=== PATIENT | male | born 1965 | race Caucasian/White ===

== ENCOUNTER 2025-09-27 12:53 | Outpatient (AMB) | payer BC, SELFPAY ==
--- NOTE | 2025-09-27 13:08 | MHC.OFFVIS ---
Vital Signs 09/27/25 13:13 Height 6 ft 2 in Weight 220 lb BMI 28.2 Intake Visit Reasons: Right knee pain and giving way Intake Note: Aldo is a 59 year old male who presents with complaints of progressively worsening right knee pain and giving way. The patient did undergo right knee arthroscopic surgery several years ago. He got fairly good relief from that procedure initially. The patient states that he re-injured his knee approximately 1 year ago. He twisted his knee and had acute onset of pain. The patient has noticed increased pain while trying to do the rowing machine at the gym. Most of the pain is along the medial aspect of his knee. He states that his right knee will give out several times per day. Has tried Tylenol, anti-inflammatory medicines and physical therapy exercises which gave him minimal relief. He has had cortisone injections in the past. The most recent injection gave him no relief. 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 Right hand Physical Exam Vital Signs: BMI result Body Mass Index 28.2 Const Other: Well-nourished well-developed very friendly male awake alert and oriented x3 in no acute distress Extrem Other: Bilateral lower extremity examination shows good capillary refill, no skin lesions noted, normal sensation light touch Right knee examination shows a minimal effusion, mild crepitus with range of motion, tenderness along his medial joint line, positive Ta's test, no instability Results Reviewed Results Reviewed: X-rays of the patient's right knee show moderate joint space narrowing, no acute bony abnormalities Assessment & Plan Assessment & Plan (1) Tear of medial meniscus of right knee: Code(s): S83.241A - Other tear of medial meniscus, current injury, right knee, initial encounter Category: Medical Plan Mr. Costa presents with recurrent right knee pain and mechanical symptoms due to early degenerative joint disease as well as recurrent medial meniscus tearing. I had a lengthy discussion with the patient regarding the treatment options. At this point he has failed continued non operative treatments. The risks and benefits of right knee arthroscopic surgery were discussed at length with the patient. The patient wishes to proceed with surgery. Surgery will involve right knee arthroscopic partial medial meniscectomy. The patient does understand that he may not get 100% relief of his symptoms depending on the severity of his degenerative changes. The patient will be scheduled for our next available date. He will follow up as instructed. Feel free to call me at any time should questions regarding his orthopedic management arise. I spent 20 minutes in reviewing the patient's records and imaging studies, seeing the patient and documenting in the medical record. Orders: Orders XR knee RT 3V 09/27/25 M25.561 - Pain in right knee Coding Level of Care Code Est Pt Level 3 (57250) Add On Problem Visit Only Diagnoses Tear of medial meniscus of right knee S83.241A
[2025-09-27 13:13] VITALS: BMI 28.2
--- OUTSIDE RECORDS SUMMARY | 2025-09-27 19:50 | XMS_ITS | Clinical Summary ---
Author Organization [facility] Prior to 03/18/25 Address [address] [place] [address] Care Team Providers Care Head Concierge Name Role Phone Thomas Dela Cruz MD Primary Care Provider [phone] Allergies No known active allergies Medications Medication Sig Dispensed Refills Start Date End Date Status Pseudoephedrine HCl (SUDAFED 12 HOUR PO) Take by mouth. 0 Active atorvastatin (LIPITOR) tablet 20 mg 0 02/21/2019 Active lisinopril (PRINIVIL,ZESTRIL) tablet 5 mg 0 02/21/2019 Active oxyCODONE (ROXICODONE) 5 MG immediate release tablet Take 1 tablet (5 mg total) by mouth every 6 (six) hours as needed for pain. Do not start until after surgery 25 tablet 0 03/18/2022 Active PEG 4799-GKg-QjVbu-NaCl-N aSulf (PEG-3350/Electrolyte s) 236 g SOLR 0 06/03/2022 Active aspirin 81 MG EC tablet Take 1 tablet (81 mg total) by mouth 2 (two) times a day. 42 tablet 0 06/10/2022 Active cephalexin (Keflex) 500 MG capsule Take 1 capsule (500 mg total) by mouth 4 (four) times a day. Start after surgery 4 capsule 0 06/10/2022 Active gabapentin (Neurontin) 300 MG capsule Take 1 capsule (300 mg total) by mouth daily. Start first dose the evening prior to surgery 3 capsule 0 06/10/2022 Active Active Problems Problem Noted Date Diagnosed Date Traumatic rupture of left quadriceps tendon 11/2021 Trigger finger, left middle finger 02/12/2022 Trigger finger, right middle finger 02/12/2022 Acute medial meniscus tear, left, sequela 2020 Left knee pain 02/22/2019 Patellofemoral arthritis of left knee 02/22/2019 Social History Tobacco Use Types Packs/Day Years Used Date Smoking Tobacco: Unknown Smokeless Tobacco: Never Sex and Gender Information Value Date Recorded Sex Assigned at Male 03/19/2022 12:24 PM EDT Gender Identity Male 03/19/2022 12:24 PM EDT Sexual Orientation Not on file Job Start Date Occupation Industry Not on file Not on file Not on file Last Filed Vital Signs Vital Sign Reading Time Taken Comments Blood Pressure - - Pulse - - Temperature - - Respiratory Rate - - Oxygen Saturation - - Inhaled Oxygen Concentration - - Weight 103.4 kg (228 lb) 11/11/2022 9:32 AM EST Height 188 cm (6' 2 ) 11/11/2022 9:32 AM EST Body Mass Index 29.27 11/11/2022 9:32 AM EST Plan of Treatment Health Maintenance Due Date Last Done Comments Hepatitis C Screening 1965 COVID-19 Vaccine (#1) 04/24/1964 Depression Screening 1975 BMI Counseling 1981 Preventative Health Evaluation 1981 DTap / Tdap / Td (1 - Tdap) 1982 Colon Cancer Screening (Colonoscopy) 2008 Shingrix-Zoster Vaccine (1 of 2) 2013 Influenza Vaccine (#1) 2025 RSV Adult > 60+ Yrs or Pregn ant (1 - 1-dose 75+ series) 2038 Hepatitis B Vaccines Aged Out No long er eligible based on patient's age to complete this topic Pneumococcal Vaccine Aged Out No long er eligible based on patient's age to complete this topic RSV Ped < 20 months Aged Out No longe r eligible based on patient's age to complete this topic Care Teams Head Concierge Relationship Specialty Start Date End Date Thomas Dela Cruz MD [address] [address] PCP - General Internal Medicine 06/23/17
--- OUTSIDE RECORDS SUMMARY | 2025-09-27 19:50 | XMS_ITS ---
Author Name [facility] Organization Unknown History of Medication Use Medication Directions Dispensed Refills Start Date End Date Stat aspirin 81 mg tablet,delayed release TAKE 1 TABLET BY MOUTH TWICE DAILY active atorvastatin 20 mg tablet TAKE 1 TABLET BY MOUTH DAILY active cephalexin 500 mg capsule active gabapentin 300 mg capsule TAKE 1 CAPSULE BY MOUTH DAILY. START FIRST DOSE THE EVENING PRIOR TO SURGERY active lisinopril 5 mg tablet TAKE 1 TABLET BY MOUTH DAILY active meloxicam 7.5 mg tablet active ondansetron HCl 4 mg tablet active oxycodone 5 mg tablet ac tive peg 3350-electrolytes 236 gram-22.74 gram-6.74 gram-5.86 gram solution TAKE 8 OZ BY MOUTH DIRECTED active Encounters Encounter Type Encounter Reason Primary Diagnosis Location Date Ambulatory [facility] [place] 04/28/2023 Ambulatory [facility] [place] 02/23/2023 Ambulatory [facility] [place] 02/10/2023 Care Team Organization Name Specialty Phone Email Start Date End Da te [facility] IJEOMA MARKHAM Primary Care 09/18/2022 06/06/2024
== END 2025-09-27 13:31 | disposition home or self-care (01) ==
LOC: HO.HOS 12:53
PROVIDERS: PCP Internal Medicine; Visit Provider Orthopaedic Surgery
DX: S83.241A Other tear of medial meniscus, current injury, right knee, initial encounter (principal)
CPT/HCPCS: 99204

== ENCOUNTER → 2025-09-27 12:56 | Outpatient (BNV) | payer BC, SELFPAY | PROVIDERS: Visit Provider Radiology Diagnostic Ultrasound | DX: M17.11 Unilateral primary osteoarthritis, right knee (principal) | CPT/HCPCS: 73562 ==

== ENCOUNTER 2025-09-27 14:27 | Outpatient (REF) | payer BC, SELFPAY ==
--- NOTE | ~2025-09-27 | XR_ITS ---
EXAMINATION: XR KNEE, RIGHT CLINICAL INFORMATION: M25.561 - Pain in right knee COMPARISON: None available. TECHNIQUE: Four views of the right knee. FINDINGS: No acute fracture. Trace suprapatellar joint fluid. Alignment is anatomic. Moderate medial and lateral compartment arthritis. Mild-moderate patellofemoral arthritis. Small chronic appearing ossification lateral to the femoral condyle. XR/XR knee RT 3V IMPRESSION: No acute findings Tricompartment arthritis. Electronically signed by: Noble Aguilar MD 09/27/2025 04:30 PM [facility]AN
--- OUTSIDE RECORDS SUMMARY | 2025-09-28 22:07 | XMS_ITS | Clinical Summary ---
Author Organization [facility] Prior to 03/18/25 Address [address] [place] [address] Care Team Providers Care Surgical Instrument Technician Name Role Phone Thomas Dela Cruz MD Primary Care Provider [phone]- [phone] Allergies No known active allergies Medications Medication [...] surgery 25 tablet 0 03/18/2022 Active PEG 5335-CEo-AkPfd-NaCl-N aSulf (PEG-3350/Electrolyte s) 236 g SOLR 0 [...] age to complete this topic Care Teams Surgical Instrument Technician Relationship Specialty Start Date End Date Thomas Dela Cruz MD [address] [address] PCP - General Internal Medicine 06/23/17
== END 2025-09-27 14:28 | disposition home or self-care (01) ==
LOC: HO.HOSX 14:27
PROVIDERS: Visit Provider Orthopaedic Surgery
DX: S83.241A Other tear of medial meniscus, current injury, right knee, initial encounter (principal); X58.XXXA Exposure to other specified factors, initial encounter; Y92.9 Unspecified place or not applicable; Y93.9 Activity, unspecified; Y99.9 Unspecified external cause status
CPT/HCPCS: 73562